=== PATIENT | female | born 1960 | race Hispanic/Latino ===

== ENCOUNTER → 2024-08-22 | Outpatient (CLI) | payer BC, MEDICARE ==
[~2024-08-22] VITALS: Ht 152.4 cm; Wt 78.9 kg
[~2024-08-22] MED LIST: ERGO500093 PO; FERR-82 PO
--- NOTE | 2024-08-22 10:26 | EKG ---
[facility] Test Date: 2024-08-22 Test Time: 11:24:49 Pat Name: STEVEN WALLACE Department: [facility] Room: Gender: F [employer]: [id number] : 1960 Requested By: ROSA DUMONT Order Number: [id number] Reading MD: Mark Diaz Measurements Intervals [place] Rate: 53 P: 36 AK: 178 QRS: -8 QRSD: 90 T: -34 QT: 468 QTc: 439 Interpretive Statements Sinus bradycardia Voltage criteria for left ventricular hypertrophy T wave abnormality, consider anterior ischemia No previous ECG available for comparison Electronically Signed On 08-22-2024 14:02:48 [facility]IAISON by Mark Diaz Please click the below link to view image of tracing.
[2024-08-22 10:35] VITALS: PULSE 61; RESP 15; TEMP 97.2
[2024-08-22 10:57] LABS: BASOPHILS # (AUTO) 0.04 K/uL (0.00-0.20); BASOPHILS % (AUTO) 0.7 % (0.0-5.0); EOSINOPHILS # (AUTO) 0.06 K/uL (0.00-0.70); HEMATOCRIT 40.9 % (36-48); IMMATURE GRANULOCYTE ABSOLUTE 0.01 K/uL (0-1); LYMPHOCYTES # (AUTO) 2.3 K/uL (1.0-4.8); LYMPHOCYTES % (AUTO) 37.7 % (21.0-51.0); MEAN CORPUSCULAR HEMOGLOBIN 25.9 pg (27.0-33.0); MEAN CORPUSCULAR HGB CONC 31.3 g/dL (32.0-36.0); MEAN CORPUSCULAR VOLUME 82.6 fL (79-99); MONOCYTES # (AUTO) 0.3 K/uL (0.1-1.0); MONOCYTES % (AUTO) 5.4 % (3.0-13.0); NEUTROPHILS # (AUTO) 3.4 K/uL (1.8-7.7); PLATELET COUNT (AUTO) 258 K/uL (130-400); RED BLOOD CELL COUNT(AUTO) 4.95 MIL/uL (4.00-5.50); RED CELL DISTRIBUTION WIDTH 23.3 % (11.0-15.5); WHITE BLOOD COUNT (AUTO) 6.1 K/uL (4.8-10.8)
[2024-08-22 11:05] LABS: CREATININE 0.7 mg/dL (0.5-1.0); POTASSIUM 4.2 mmol/L (3.5-5.1)
[2024-08-22 11:26] LABS: INR 0.99 (0.85-1.15); PROTHROMBIN TIME 10.7 SEC (9.6-11.6)
[2024-08-22 11:28] LABS: PARTIAL THROMBOPLASTIN TIME 27.9 SEC (26.3-35.5)
--- NOTE | 2024-08-22 16:38 | NUR ---
RE: EKG REPORTED EKG RESULTS TO DR BRADSHAW. REQUESTING CARDIAC CLEARANCE FOR SURGERY DUE TO EKG RESULTS. CALLED CELIA (DR DUMONT'S NURSE) AND INFORMED HER THAT PATIENT WILL NEED CARDIAC CLEARANCE FOR SURGERY PER ANESTHESIOLOGIST. PER CELIA, SHE WILL NOTIFY THE PATIENT. (EKG FAXED TO DR DUMONT/CELIA)
== END | disposition home or self-care (01) ==
LOC: EDSTATUS 08:00 → DAH 10:00
PROVIDERS: ATTEND Surgery
DX: Z01.818 Encounter for other preprocedural examination (principal); K80.13 Calculus of gallbladder with acute and chronic cholecystitis with obstruction; R00.1 Bradycardia, unspecified; R94.31 Abnormal electrocardiogram [ECG] [EKG]; I51.7 Cardiomegaly; R10.9 Unspecified abdominal pain; Z86.2 Personal history of diseases of the blood and blood-forming organs and certain disorders involving the immune mechanism
CPT/HCPCS: 93005; 80048; 85025; 85610; 85730; 36415; A6260